=== PATIENT | male | born 1965 | race Caucasian/White ===

== ENCOUNTER 2021-12-01 16:16 | Inpatient (IN) | payer OTHER, MEDICARE ==
[~2021-12-01] VITALS: Ht 182.9 cm; Wt 150.2 kg
[~2021-12-01 16:16] MED LIST: CEFP200 PO; FERRIC X-150150 M1 PO; NYAMYC15 G1 TOP
[2021-12-01 16:44] LABS: BASOPHILS ABSOLUTE AUTO 0.04 K/mm3 (0.00-0.23); BASOPHILS PERCENT AUTO 0 % (0-2); EOSINOPHILS ABSOLUTE AUTO 0.03 K/mm3 (0.00-0.68); EOSINOPHILS PERCENT AUTO 0 % (0-6); Hematocrit 26.9 % (37.0-53.0); Hemoglobin 8.7 g/dL (13.5-17.5); IMMATURE GRAN ABSOLUTE AUTO 0.18 K/mm3 (0.00-0.10); IMMATURE GRAN PERCENT AUTO 1 % (0-1); LYMPHOCYTES PERCENT AUTO 7 % (21-46); MONOCYTES ABSOLUTE AUTO 0.82 K/mm3 (0.16-1.47); MONOCYTES PERCENT AUTO 3 % (4-13); Mean Corpuscular HGB 27.4 pg (26.0-34.0); Mean Corpuscular HGB Conc 32.3 g/dL (31.5-36.5); Mean Corpuscular Volume 85 fL (80-100); Mean Platelet Volume 8.7 fL (9.1-12.4); NEUTROPHILS ABSOLUTE AUTO 22.76 K/mm3 (1.96-9.15); NEUTROPHILS PERCENT AUTO 88 % (41-73); Platelet Count 812 K/mm3 (150-400); RDW Coefficient Variation 15.7 % (11.7-14.2); RDW Standard Deviation 47.9 fL (35.1-46.3); Red Blood Cell Count 3.18 M/mm3 (4.30-5.90); White Blood Cell Count 25.73 K/mm3 (4.00-11.30)
[2021-12-01 16:55] LABS: PCO2 Arterial 45.4 mmHg (35-45); PO2 Arterial 279 mmHg (80-100); pH Blood Arterial 7.41 (7.35-7.45)
[2021-12-01 17:01] LABS: Alanine Aminotransfer (ALT/SGP 23 U/L (12-78); Albumin, Blood 2.6 g/dL (3.4-5.0); Albumin/Globulin Ratio 0.5 (0.8-1.8); Alk Phos 113 U/L (50-136); Anion Gap 9 mmol/L (6-16); Aspartate Aminotrans (AST/SGOT 20 U/L (12-37); Bilirubin, Total 0.3 mg/dL (0.1-1.0); Blood Urea Nitrogen 16 mg/dL (8-24); Bun/Creatinine Ratio 14.2 (12.0-20.0); CO2, Blood 28 mmol/L (21-32); Calcium, Blood 9.2 mg/dL (8.5-10.1); Chloride, Blood 92 mmol/L (98-108); Creatinine, Blood 1.13 mg/dL (0.60-1.20); Ethanol (Alcohol), Blood, Med <3 mg/dL; Globulin, Blood 5.2 g/dL (2.2-4.0); Glomerular Filtration Rate 77 (60-); Glucose, Blood 97 mg/dL (70-99); Potassium, Blood 4.1 mmol/L (3.5-5.5); Sodium, Blood 129 mmol/L (136-145); Total Protein, Blood 7.8 g/dL (6.4-8.2)
[2021-12-01] MEDS ORDERED: METF500 PO (17:17)
[2021-12-01] MEDS ORDERED: LOSARTAN POTAS100 M1 PO (17:18)
[2021-12-01] MEDS ORDERED: GABA300 PO (17:19)
[2021-12-01 17:33] LABS: U Amphetamine Screen Not Detected; U Barbituate Screen Not Detected; U Benzodiazapine Screen DETECTED; U Buprenorphine Screen Not Detected; U Cannabinoids Screen Not Detected; U Cocaine Screen Not Detected; U Methadone Screen Not Detected; U Methamphetamine Screen Not Detected; U Opiates Screen Not Detected; U Oxycodone Screen Not Detected; U Phencyclidine Screen Not Detected; U Propoxyphene Screen Not Detected
[2021-12-01 18:42] LABS: Influenza A, PCR NEGATIVE (NEGATIVE); Influenza B, PCR NEGATIVE (NEGATIVE); Resp Syncytial Virus, PCR NEGATIVE (NEGATIVE); SARS-Cov-2 (COVID-19) PCR, MMC NEGATIVE (NEGATIVE)
[2021-12-01 19:18] LABS: Appearance, Urine Cloudy (Clear); Bilirubin, Urine Neg (Neg); Blood, Urine 2+ (Neg); Color, Urine Yellow (P-Yellow); Glucose Qualitative, Urine Neg (Neg); Ketones, Urine Neg (Neg); Leukocyte Esterase, Urine Neg (Neg); Nitrite, Urine Neg (Neg); Protein, Urine 2+ (Neg); Source, Urine Straight Cath; Urobilinogen, Urine NORM (Normal)
[2021-12-01 19:30] LABS: Bacteria Many /hpf; Squamous Epithelial Cells Few /hpf (Few); Transitional Epithelial Cells Rare /hpf (0-Rare)
[2021-12-01 19:32] LABS: Hyaline Casts 0-2 /lpf (0-2)
[2021-12-01 19:41] LABS: Spermatozoa Rare /hpf; Uric Acid Crystals Many /hpf
--- NOTE | 2021-12-01 23:32 | NUR ---
PT ADMITTED TO ROOM ICU 12 FROM ED. ARRIVING TO ROOM AT 2235. SLIDE TRANSFERRED TO BED. PT INTUBATED. VERSED DRIP AT 4MG PER HOUR. PT AWAKENS DURING TRANSFER AND REACHES FOR TUBE. SOFT RESTRAINTS PLACED UPON ADMIT. WILL REVIEW CHART AND PLAN OF CARE FOR THIS PT.
--- NOTE | 2021-12-02 03:00 | NUR ---
PT TURNED Q 2 HOURS IN BED. PT QUICKLY AWAKENS AND REACHES FOR HIS ETT. REDIRECTED PT. HAVE BEEN ABLE TO SUCTION CLEAR SECRETIONS WITH FLECKS OF BROWN CONSISTANT WITH CHEWING TOBACCO THAT PT HAD IN HIS MOUTH. CONTINUES ON VERSED DRIP AT 4 MG PER HOUR. WILL CONTINUE TO MONITOR.
[2021-12-02 04:12] LABS: Hematocrit 23.8 % (37.0-53.0); Hemoglobin 7.6 g/dL (13.5-17.5); Mean Corpuscular HGB 27.2 pg (26.0-34.0); Mean Corpuscular HGB Conc 31.9 g/dL (31.5-36.5); Mean Corpuscular Volume 85 fL (80-100); Mean Platelet Volume 8.5 fL (9.1-12.4); Platelet Count 619 K/mm3 (150-400); RDW Coefficient Variation 15.7 % (11.7-14.2); RDW Standard Deviation 48.9 fL (35.1-46.3); Red Blood Cell Count 2.79 M/mm3 (4.30-5.90); White Blood Cell Count 15.07 K/mm3 (4.00-11.30)
[2021-12-02 04:36] LABS: Base Excess Venous 5.1 mmol/L; Bicarbonate Venous 28.6 mmol/L (24.0-30.0); PCO2 Venous 43.1 mmHg (38-42); pH Blood Venous 7.44 (7.34-7.37)
[2021-12-02 04:42] LABS: Iron Serum 22 ug/dL (65-175); Magnesium, Blood 1.8 mg/dL (1.6-2.4); Percent Saturation 11.1 % (20.0-50.0); Total Iron Binding Capacity 198 ug/dL (250-450)
[2021-12-02 04:48] LABS: Albumin, Blood 2.4 g/dL (3.4-5.0); Anion Gap 7 mmol/L (6-16); Blood Urea Nitrogen 15 mg/dL (8-24); Bun/Creatinine Ratio 16.9 (12.0-20.0); CO2, Blood 30 mmol/L (21-32); Calcium, Blood 8.9 mg/dL (8.5-10.1); Chloride, Blood 92 mmol/L (98-108); Creatinine, Blood 0.89 mg/dL (0.60-1.20); Glomerular Filtration Rate 102 (60-); Glucose, Blood 188 mg/dL (70-99); Phosphorus, Blood 2.7 mg/dL (2.5-4.9); Potassium, Blood 3.7 mmol/L (3.5-5.5); Sodium, Blood 129 mmol/L (136-145)
--- NOTE | 2021-12-02 07:04 | NUR ---
SEDATION VACATION DONE THIS MORNING. PT WOULD THRASH ABOUT AND BECOMES VERY ANXIOUS. DOES NOT FOLLOW ANY COMMANDS. DOES TRIED TO STRIKE OUT AT THIS RN. IS NOT REDIRECTABLE. IS CURRENTLY BACK TO VERSED DRIP AT 4 MG PER HOUR. PT TOLERATING VENT AT THIS TIME. BEDSIDE REPORT GIVEN.
--- NOTE | 2021-12-02 12:03 | NUR ---
ASSUMED CARE ASSUMED CARE OF PT AT 0700. PT SEDATED ON 4MG/HR OF VERSED. PT MOVING EXTREMITIES, UNABLE TO OPEN EYES SPONTANEOUSLY, NOT FOLLOWING ANY COMMANDS. D/C'd VERSED, STARTED ON PROPOFOL AT 5MCG/KG/MIN, PROPOFOL PLACED ON STAND-BY TO ASSESS NEURO STATUS, PER . PT ON SPONTANEOUS VENTILATION MODE, WITH PS 8, PEEP 5, FiO2 40% PT HAVING MODERATE THICK CLEAR SECRETIONS VIA ETT. PT IN SR WITH HR IN THE 80'S, BP STABLE. PT IN BILATERAL WRIST RESTRAINTS. MEJÍA PATENT DRAINING TO GRAVITY, CLOUDY/SEDIMENT NOTED. AT BEDSIDE
--- NOTE | 2021-12-02 13:55 | NUR ---
Received call from Primary RN Laurel reporting family may benefit from code status discussion. 56 year old male admitted to the hospital for Respiratory Failure. Pt's medical history and comorbidities include: LBKA, DM2, HTN, and hyperlipidemia. Pt resting in bed with eyes closed and is intubated. Pt's spouse and step daughter at bedside. Engaged in therapeutic discussion regarding code status. Offered active listening as family reports Pt has been non compliant with medical recommendations for quite some time. Family reports Pt's wishes are DNR. They state Pt has been making comments [place] and stating "don't come looking for me". Continued listening as family describes Pt's behaviors and attitudes towards life. It appears that Pt may be experiencing depression. Continued discussion regarding code status wishes. Family agrees Pt wishes are for DNR and would like code status to reflect his wishes. Family would like to continue current treatment plan including intubation as recommended until they discuss further. Spoke with Dr Henriquez and discussed case. Placed DNR order in [facility] per V/O from Dr Henriquez. Palliative Care will remain available for therapeutic and supportive visits.
--- NOTE | 2021-12-02 16:20 | NUR ---
assumed care Assumed care at 1600 after recieving report from ALAINA San. and daughter at bedside. Powerglide being placed in left arm. Pt remains stable on current ventilator settings. No sedation currently, pt is not following commands. RN to continue to monitor
--- NOTE | 2021-12-02 16:31 | NUR ---
PT TRANSFERED TO 305, REPORT GIVEN TO ANABEL FOLEY AT 1620.
--- NOTE | 2021-12-02 16:33 | NUR ---
RELINQUISHED CARE AT 1600, BEDSIDE REPORT GIVEN TO ALEJANDRO FOLEY
[2021-12-02 16:51] LABS: Source, Urine Foley catheter
[2021-12-02 17:34] LABS: Appearance, Urine Hazy (Clear); Bilirubin, Urine Neg (Neg); Blood, Urine 5+ (Neg); Color, Urine Yellow (P-Yellow); Glucose Qualitative, Urine 1+ (Neg); Ketones, Urine Neg (Neg); Leukocyte Esterase, Urine 2+ (Neg); Nitrite, Urine Neg (Neg); Protein, Urine 2+ (Neg); Urobilinogen, Urine NORM (Normal)
--- NOTE | 2021-12-02 18:02 | NUR ---
MED WASTE VERSED DRIP D/C'D- WASTED 75ML WITH ALAINA KNENY.
--- NOTE | 2021-12-02 18:17 | NUR ---
End of shift Dr. Horne notified of elevated BP. PRN med orders recieved and administered. Pt's BP 178/83 after 2 doses of Labetalol (total 40mg IV). Tube feed started at 10ml with orders to increase by 10ml every 8 hours as tolerated with a 40ml flush every 4 hours. remains at bedside. All questions answered. Pt is restless and pulling on restraints at times. Opens eyes to voice but does not follow commands. SBP goal < 160, additional PRN's to be administered as ordered. RN to continue to monitor.
[2021-12-02 18:29] LABS: Bacteria Mod /hpf; Red Blood Cells, Urine 25-50 /hpf (0-2); Squamous Epithelial Cells Rare /hpf (Few)
[2021-12-02 18:30] LABS: Hyaline Casts 0-2 /lpf (0-2); WBC Cast 0-2 /lpf (0)
--- NOTE | 2021-12-02 21:52 | NUR ---
ASSUMPTION OF CARE: ASSUMED CARE OF PT AT 1900. PT INTUBATED WITH VENT SETTINGS PS 8, PEEP OF 5, AND FIO2 40%. PT RESPONDS TO VERBAL AND PAIN STIMULI, BUT IS NOT FOLLOWING COMMANDS AT THIS TIME; PERRLA BILATERALLY. LUNG SOUNDS ARE CLEAR T/O DIM IN THE BASES; BILAT SYMMETRICAL CHEST RISE. O2 LEVELS MAINTAINING 98< WITH RR 12-14. PT TACHYPNIC AND RESTLESS, MEDICATED WITH FENTANYL 2 HR PRN TO IMRPOVE VENTILATOR COMPLIANCE. S1/S2 ASCULTATED BUT MUFFLED R/T ANATOMY; RATE IN THE 80'S. SBP IN THE 210'S AT 1900, PT MEDICATED WITH LOBETOLOL AND LOSARTAN. DR ADRIAN CALLED AT 2019 AND UPDATED ABOUT SBP IN THE 200'S 45 MINUTES POST MED ADMINISTRATIONS; AT THIS TIME TELEPHONE ORDERS FOR CLONDINE ONE DOSE RECIEVED. PT MEDICATED. PT GIVEN ANOTHER DOSE OF LOBETOLOL AT 2148. SBP HAS NOW COME DOWN TO THE 180'S. PT HAS HYPOACTIVE BS IN ALL FOUR QUADRANTS; OGT IN PLACE AND INFUSING TUBE FEEDING AT 10 MLS/HR WITH A GOAL RATE OF 55 MLS/HR. ABD IS ROUNDED, OBESE, AND SOFT; PT HAS NO PAIN RESPONSE WHEN ABD IS PALPATED. TEMP MEJÍA IN PLACE AND DRAINING TO GRAVITY; URINE CLOUDY, ALEJANDRO AND SEDIMENTS PRESENT. PT PPP X 4, CAP REFILL < 3 SECONDS, AND EXTREMITIES WARM. PT HAS TWO POWERGLIDES IN THE UPPER R/L ARM THAT ARE PATENT. PT HAS BKA ON THE LEFT LEG, AND A DIABETIC ULCER ON THE RIGHT FOOT PRIOR TO ADMISSION. WILL CONTINUE TO MONITOR THROUGHOUT THE SHIFT.
[2021-12-03 04:12] LABS: BASOPHILS ABSOLUTE AUTO 0.03 K/mm3 (0.00-0.23); BASOPHILS PERCENT AUTO 0 % (0-2); EOSINOPHILS ABSOLUTE AUTO 0.07 K/mm3 (0.00-0.68); EOSINOPHILS PERCENT AUTO 1 % (0-6); Hematocrit 23.5 % (37.0-53.0); Hemoglobin 7.2 g/dL (13.5-17.5); IMMATURE GRAN PERCENT AUTO 1 % (0-1); LYMPHOCYTES ABSOLUTE AUTO 1.24 K/mm3 (0.84-5.20); LYMPHOCYTES PERCENT AUTO 10 % (21-46); MONOCYTES ABSOLUTE AUTO 0.61 K/mm3 (0.16-1.47); MONOCYTES PERCENT AUTO 5 % (4-13); Mean Corpuscular HGB 26.4 pg (26.0-34.0); Mean Corpuscular HGB Conc 30.6 g/dL (31.5-36.5); Mean Corpuscular Volume 86 fL (80-100); Mean Platelet Volume 8.8 fL (9.1-12.4); NEUTROPHILS ABSOLUTE AUTO 10.14 K/mm3 (1.96-9.15); NEUTROPHILS PERCENT AUTO 83 % (41-73); Platelet Count 621 K/mm3 (150-400); RDW Coefficient Variation 15.5 % (11.7-14.2); RDW Standard Deviation 48.6 fL (35.1-46.3); Red Blood Cell Count 2.73 M/mm3 (4.30-5.90); White Blood Cell Count 12.19 K/mm3 (4.00-11.30)
[2021-12-03 04:35] LABS: Calcium, Blood 9.1 mg/dL (8.5-10.1); Creatinine, Blood 0.64 mg/dL (0.60-1.20); Magnesium, Blood 1.8 mg/dL (1.6-2.4); Phosphorus, Blood 2.5 mg/dL (2.5-4.9); Potassium, Blood 3.8 mmol/L (3.5-5.5)
--- NOTE | 2021-12-03 06:45 | NUR ---
SHIFT SUMMARY: NO ACUTE CHANGES THIS SHIFT. PT REMAINS INTUBATED WITH VENT SETTINGS SPONTANEOUS, PS 8, PEEP 5, FIO2 55%, AND TIDAL VOLUMES 600-800; WHEN PT AGGITATED TIDAL VOLUMES WILL JUMP UP TO [id number]. PT HAS BEEN RESPONSIVE TO VERBAL/PAIN STIMULI BUT IS NOT FOLLOWING COMMANDS THIS SHIFT. PT HAS CLEAR LUNG SOUNDS THROUHGOUT AND DIM BASES. O2 LEVELS MAINTAINING 98< AND RR 16-18. PT HAS BEEN HYPERTENSIVE THROUGHOUT THE SHIFT WITH SBP RANGING FROM 160-190'S; PT MEDICATED AROUND THE CLOCK WITH LOBETOLOL AND HYDRALAZINE. PT RESPONDED WELL TO THESE MEDICATIONS, BUT EFFECTS WORE OFF QUICKLY. PT HAS BEEN RECIEVING FENTANYL Q2HRS TO HELP WITH RESTLESSNESS/VENTILATOR COMPLIANCE. PT HAS RESPONDED WELL TO THIS, BUT EFFECTS WORE OFF QUICKLY. TEMP MEJÍA IN PLACE AND DRAINING TO GRAVITY; PT RECIEVED ONE TIME DOSE OF LASIX R/T HTN AND HAD GOOD OUTPUT THIS SHIFT. COMPLETE BED BATH AND LINEN CHANGE COMPLETED THIS SHIFT. WILL CONTINUE TO MONITOR UNTIL ONCOMING NURSE ARRIVES.
--- NOTE | 2021-12-03 07:19 | NUR ---
ASSUMED CARE OF PT THIS AM PT. REMAINS OFF OF SEDATION T/O THE NIGHT PER REPORT. PT. CURRENTLY ON SPONT MODE ON VENT PS 8/5 40%. PT RR IN 20S. RESTLESS IN BED, DOES NOT OPEN EYES OR FOLLOW COMMANDS, BUT DOES WITHDRAW FROM PAINFUL STIMULI. NYSTAGMUS NOTED WHEN ASSESSING EYES, PUPILS EQUAL AND REACTIVE. COUGH AND GAG PRESENT, PALE AND SWEATING. PT. HYPERTENSIVE, LS COARSE THIN LA SECRETIONS FROM ETT. PT. HAS TF INFUSING AT 30ML/HR OF PIVOT 1.5. PT. PLACED BACK ON PROPOFOL GTT AT THIS TIME, VENT SWITCHED TO ACVC 16, TV 500,40%, PEEP 5. BILAT WRIST RESTRAINTS REMAIN IN PLACE TO PREVENT SELF EXTUBATION. AFEBRILE. MEJÍA DRAININ YELLOW URINE TO GRAVITY.
--- NOTE | 2021-12-03 11:00 | NUR ---
REPORT TO CASSY FOLEY
--- NOTE | 2021-12-03 13:04 | NUR ---
Received call from supervisor correspondence section Stacey reporting family is requesting Palliative Care visit. Spoke with Shiloh and discussed case. Reviewed plan of care. Pt resting in bed and intubated. No S/S of distress at thist alhaji. Pt's spouse, daughter and another visitor at bedside. Offered active listening as spouse Echo asks "what is the step to have him trasnfered". Requested clearification on statement. Echo inquires the steps to withdraw care and what to expect after. Instructed on steps including considering hospice. Reviewed current plan of care and consideration of allowing another day or two for Pt to start clearing with his altered mentation. Continued active listening and answered questions. Spouse reports being in agreement with continuing current plan of care. Palliative Care will remain available.
--- NOTE | 2021-12-03 17:25 | NUR ---
SHIFT SUMMARY PT REMAINS INTUBATED AND SEDATED. VENT SETTINGS AC/VC %. LUNGS CLEAR, DIM IN BASES. SMALL RED SECRETIONS FROM ETT. PROPOFOL FOR SEDATION. WHEN SEDATION LIGHTENED, PT OPENS EYES TO VERBAL STIMULI. DOES NOT FOLLOW COMMANDS. TREMORS INCREASE. NO SBT THIS SHIFT D/T INCREASED O2 REQUIREMENTS. BP STABLE, NSR, RATE 90'S. DIALYSIS THIS SHIFT, 4L OFF, TOLERATED WELL. CATH RESECURED BY DR CHADWICK AND REDRESSED D/T OOZING, IMPROVED. 200 BROWN/GREEN EMESIS OUT OGT, TRICKLE FEEDS STARTED. MEJÍA PATENT, 25 ML CLEAR YELLOW URINE OUT. RECTAL TUBE, 50 ML LIQUID BROWN URINE OUT. WILL CONTINUE TO MONITOR UNTIL REPORT TO ONCOMING NURSE.
--- NOTE | 2021-12-03 18:14 | NUR ---
SHIFT SUMMARY PT REMAINS INTUBATED AND SEDATED. VENT SETTINGS AC/VC 16/500/40/5. LUNGS COARSE, SMALL AMOUNT OF THIN LA SECRETIONS FROM ETT. PROPOFOL FOR SEDATION, WHEN SEDATION LIGHTENED, PT COUGHING, PEAK PRESSURING. DOES NOT FOLLOW COMMANDS. SR, RATE 80'S. BP STABLE. TUBE FEEDS DECREASED TO 10 ML/HR. MEJÍA PATENT, DRAINED 350 ML ALEJANDRO URINE TO GRAVITY. WILL CONTINUE TO MONITOR UNTIL REPORT TO ONCOMING NURSE.
--- NOTE | 2021-12-03 22:19 | NUR ---
ASSUMPTION OF CARE: ASSUMED CARE OF PT AT 1900. PT IS INTUBATED AND SEDATED WITH PROPOFOL RUNNING AT 50 MCG/KG/MIN AND VENT SETTINGS AC/VC 16/500/5/40%. PT IS RESPONSIVE TO PAIN STIMULI BUT NOT RESPONSIVE TO VERBAL STIMULI; PT NOT FOLLOWING COMMANDS AT THIS TIME. PERRLA BILATERALLY. PT HAS CLEAR LUNG SOUNDS THROUGHOUT DIM BASES; O2 LEVELS MAINTAINING 96<. S1/S2 ASCULTATED WITH HR IN THE 80'S AND SBP IN THE 150'SL; PT MEDICATED WITH LOSARTAN ORDERED. HYPOACTIVE BS IN ALL FOUR QUADRANTS; ABD IS ROUNDED, FIRM, AND NO PAIN WITH PALPATION. OGT PATENT AND INFUSING VHP AT 10 MLS/HR WITH 150 ML FLUSH Q4HRS; 5 ML RISIDUAL. TEMP MEJÍA IN PLACE AND DRAINING TO GRAVITY; URINE ALEJANDRO AND CLEAR. ALL EXTREMITIES ARE WARM AND PPP X 4, CAP REFIL REMAINS < 3 SECONDS. WILL CONTINUE TO MONITOR THROUGHOUT THE SHIFT.
[2021-12-04 04:20] LABS: BASOPHILS ABSOLUTE AUTO 0.03 K/mm3 (0.00-0.23); BASOPHILS PERCENT AUTO 0 % (0-2); EOSINOPHILS ABSOLUTE AUTO 0.13 K/mm3 (0.00-0.68); EOSINOPHILS PERCENT AUTO 1 % (0-6); Hematocrit 22.4 % (37.0-53.0); Hemoglobin 7.1 g/dL (13.5-17.5); IMMATURE GRAN ABSOLUTE AUTO 0.08 K/mm3 (0.00-0.10); IMMATURE GRAN PERCENT AUTO 1 % (0-1); LYMPHOCYTES ABSOLUTE AUTO 1.47 K/mm3 (0.84-5.20); LYMPHOCYTES PERCENT AUTO 15 % (21-46); MONOCYTES ABSOLUTE AUTO 0.58 K/mm3 (0.16-1.47); MONOCYTES PERCENT AUTO 6 % (4-13); Mean Corpuscular HGB 27.6 pg (26.0-34.0); Mean Corpuscular HGB Conc 31.7 g/dL (31.5-36.5); Mean Corpuscular Volume 87 fL (80-100); Mean Platelet Volume 8.6 fL (9.1-12.4); NEUTROPHILS ABSOLUTE AUTO 7.44 K/mm3 (1.96-9.15); NEUTROPHILS PERCENT AUTO 77 % (41-73); Platelet Count 579 K/mm3 (150-400); RDW Coefficient Variation 15.7 % (11.7-14.2); RDW Standard Deviation 49.8 fL (35.1-46.3); Red Blood Cell Count 2.57 M/mm3 (4.30-5.90); White Blood Cell Count 9.73 K/mm3 (4.00-11.30)
[2021-12-04 04:22] LABS: PCO2 Arterial 45.5 mmHg (35-45); PO2 Arterial 112 mmHg (80-100); pH Blood Arterial 7.46 (7.35-7.45)
[2021-12-04 04:39] LABS: Bun/Creatinine Ratio 22.5 (12.0-20.0); Creatinine, Blood 0.67 mg/dL (0.60-1.20); Magnesium, Blood 2.2 mg/dL (1.6-2.4); Phosphorus, Blood 3.3 mg/dL (2.5-4.9); Potassium, Blood 3.8 mmol/L (3.5-5.5)
--- NOTE | 2021-12-04 06:27 | NUR ---
SHIFT SUMMARY: NO ACUTE CHANGES THIS SHIFT. PT REMAINS INTUBATED AND SEDATED WITH PROPOFOL RUNNING AT MCG/KG/MIN AND VENT SETTINGS /500/5/40%. PT REMAINS RESPONSIVE TO PAIN STIMULI AND IS NOT FOLLOWING COMMANDS. LUNG SOUNDS ARE COARSE T/O AND DIM BASES; O2 LEVELS 98<. PT HAS CUFF LEAK AND FLUID COLLECTION IN THE HOME MANAGER BALLOON, TIDAL VOLUMES ARE STABLE; DR CHADWICK AWARE. PT RECIEVED A BED BATH AND COMPLETE LINEN CHAGNE THIS SHIT. PT BECAME HYPERTENSIVE THE LAST HOUR OF THIS SHIFT WITH SBP IN THE 190'S; PT MEDICATED WITH HYDRALAZINE. HR IN THE 80'S. WILL CONTINUE TO MONITOR UNTIL ONCOMING RN ARRIVES.
--- NOTE | 2021-12-04 16:23 | NUR ---
Joint visit this afternoon with Dr Hay. Pt resting in bed, sedated, and intubated. Pt's spouse Echo at bedside. Dr Hay examines Pt, assesses Pt's medical history with spouse and reviews plan of care. Options discussed with plan to revisit Pt's clinical status tomorrow morning after attempting to wean Pt off all sedation medication. Spouse expresses appreciation and reports no concerns at this time. Palliative Care will remain available.
--- NOTE | 2021-12-04 18:41 | NUR ---
SUMMARY PT INTUBATED. STOPPED SEDATION THIS EVENING. PT WILL GRIMACE TO PAINFUL STIMULUS. MOVES EXTREMETIES SPONTANEOUSLY. L BKA. WOUNDS TO R FOOT SEE WOUND PHOTOS. PT HAD TWO BM'S TODAY THAT ARE CLEAR GELATINOUS. NO ACUTE CHANGES THIS SHIFT. AT BEDSIDE.
--- NOTE | 2021-12-04 22:00 | NUR ---
WHEN REPISITIONING THE PATIENT TRIED PULLING AWAY WHEN TURNED ON SIDE. EYES WERE OPEN BUT WITH GAZE, NO REPONSE TO VERBAL STIMULI. PARTIAL BED BATH GIVEN. BLOOD PRESSURE HYPERTENSIVE, HYDRALAZINE GIVEN.
[2021-12-05 04:41] LABS: Base Excess Venous 8.2 mmol/L; Bicarbonate Venous 31.2 mmol/L (24.0-30.0); PCO2 Venous 48.6 mmHg (38-42); pH Blood Venous 7.43 (7.34-7.37)
[2021-12-05 05:17] LABS: Bun/Creatinine Ratio 24.8 (12.0-20.0); Calcium, Blood 9.4 mg/dL (8.5-10.1); Creatinine, Blood 0.57 mg/dL (0.60-1.20); Magnesium, Blood 1.9 mg/dL (1.6-2.4); Potassium, Blood 3.8 mmol/L (3.5-5.5)
--- NOTE | 2021-12-05 07:16 | NUR ---
SHIFT SUMMARY: PATIENT HAS NOT HAD ANY PURPOSEFUL MOVEMENTS. NON-RESPONSIVE TO PAIN, OR VERBAL COMMAND. SPONTANOUS EYE OPENING WITH GAZE THAT IS UP TO THE RIGHT, SLUGGISH PUPILS., DOES HAVE SPONTANOUS WITHDRAWL WHEN MOVED, BUT AGAIN NOT PURPOSEFUL. GAG PRESENT WHEN SUCTIONING, COUGH. ETT TUBE CONTINUES TO HAVE CUFF LEAK NEEDING CONSTANT AIR ADDED. DISCUSSED THIS WITH RT.SUCTION IS THICK WHITE, VENT HAS BEEN AC/VC SETTINGS OF 14/500/4/40% SATS MAINTAINED IN THE 90-100% RANGE. HE DID HAVE A COUGHING FIT THIS AM HE WAS BUCKING THE VENT. FENT 25MCQ GIVEN WHICH HELPED TO RESOLVE. NO PROPOFOL THE ENTIRE SHIFT AND PRECEDEX WAS NEVER NEEDED. LS DIM TO COARSE. NEEDING SUCTIONING MORE FREQUENTLY. ABDOMIN DISTENDED, NO BM. TF INFUSING WITH NO RESIDUALS. BLOOD SUGARS HAVE BEEN HIGH IN THE 200'S. WOUNDS TO RIGHT FOOT CLEANSED AND DRESSING APPLED, FOAM BOOTY. URINE CONTINUES TO BE TEA COLOR WITH TENT OF BLOOD AND LOTS OF SEDIMENT. HE HAS NEEDED PRN BLOOD PRESSURE MEDS. REPORT GIVEN TO DAYSHIFT.
--- NOTE | 2021-12-05 07:29 | NUR ---
ASSUMPTION OF CARE PT VENTED ON [facility] /40%/5, NO SEDATION AT THIS TIME
--- NOTE | 2021-12-05 10:50 | NUR ---
Pal Care note: Pt moving legs in bed and appears restless upon entering room. I had reviewed EMR. Pt remains unable to follow commands. See RN/MD PNs. I was updated on family decision to w/d ventilator/aggressive tx per Dr Hay and pt's RN. Bedside visit to susan and . Susan appears guarded and not receptive to conversation. was receptive to visit and verbalized appreciation for care. They had no additional questions and had already spoken with paper supervisor yesterday and today. Comfort care orders placed per request. Family indicated they were ready to proceed. I let RT and RN know family ready.
--- NOTE | 2021-12-05 15:58 | NUR ---
F/U COMFORT CARE VISIT MADE AFTER PT TRANSFERRED TO RM 333. at bedside holding pt's hand. He remains unresponsive. Resp even and unlabored at this time. He appears much more comfortable and no restlessness noted now. Discussed with and eryn in room the nonverbal indicators to watch for that would tell us he may be hurting, anxious, dyspnic, distressed. verbalized understanding to report any noted indicators to nursing staff for tx prn per eMAR/comfort care order set. Planned with them to check in tomorrow for s/s assessment and support.
--- NOTE | 2021-12-05 16:16 | NUR ---
TRANSFER NOTE PTN TRANSFERED FROM ICU AT APPROX 1345. PTN NON-RESPONSIVE AND ON COMFORT CARE. FAMILY BY HIS BEDSIDE. PTN MEDICATED PER EMAR NEEDED. BOTTOM R FOOT WITH SMALL INJURY, OPEN TO AIR. L BKA. CONTINUE COMFORT CARE MEASURES.
--- NOTE | 2021-12-05 19:44 | NUR ---
SHIFT SUMMARY PTN NON-RESPONSIVE, COMFORT CARE. PTN RESTED COMFORTABLY THROUGH SHIFT, NO SIGNS OF ANXIETY OR PAIN. MEDICATION GIVEN PER EMAR. AND DAUGHTER AT BEDSIDE. CONTINUE COMFORT CARE.
--- NOTE | 2021-12-06 05:28 | NUR ---
SHIFT SUMMARY 56 YR M ON COMFORT CARE. DNR. PT HAS BEEN RESTING COMFORTABLY WITH HIS AND DAUGHTER AT BEDSIDE. HE HAS SHOWN NO SIGNS OF PAIN OR DISCOMFORT AND HE CONTINUES TO BE REPOSITIONED Q2H. HE HAS BEEN NONRESPONSIVE FOR THE MOST PART AND THIS NURSE ONLY SAW HIM OPEN HIS EYES BRIEFLY TWICE.
--- NOTE | 2021-12-06 09:01 | NUR ---
Pt moving around in bed, turning head back and forth. Pt appears restless and anxious. Pt has foaming secretions at mouth. Lying on back with HOB sl elevated. Nonverbal indicators of discomfort noted as well as increased secretions since pm visit yesterday. Report provided to RN on my visit. Would recommend positioning pt on side with hob elevated at 45 degrees, administration of atropine/scopolomine, ativan and roxanol prn. Will reassess later today. No family at bedside this am.
--- NOTE | 2021-12-06 12:22 | NUR ---
Reassessment. Pt appears much more comfortable and less restless at this time.
--- NOTE | 2021-12-06 18:04 | NUR ---
PT BEGINNING TO MOVE ARMS, AND LEGS IN A TENSE JERKING MOTION. FOAM AT THE MOUTH. RN WASHED PT'S FACE AND HELD PT'S HAND. TURNED ON CLASSICAL MUSIC. DIMMED LIGHTS. ADMINISTERED PRN MEDICATION, SEE EMAR.
--- NOTE | 2021-12-06 18:06 | NUR ---
COMFORT CARE - PT MOANING AND MOVING ARMS IN A TENSE, JERKING MOTION. SEE EMAR.
--- NOTE | 2021-12-06 18:10 | NUR ---
PT CONTINUES TO MOVE IN JERKY MOTIONS WITH BUE AND THROW HIS RIGHT LEG OVER THE BED RAIL. ADMINISTERED PRN MEDICATIONS. SET UP FAN IN THE ROOM. FAMILY AT BEDSIDE, ATTEMPTING TO CONSOLE PT, WHO IS NOT RESPONDING TO TOUCH OR TALK.
--- NOTE | 2021-12-06 18:12 | NUR ---
SOFT WRIST RESTRAINTS IN PLACE TO BUE WHILE WAITING FOR MEDICATION TO TAKE EFFECT. FAMILY AT BEDSIDE.
--- NOTE | 2021-12-07 05:51 | NUR ---
SHIFT SUMMARY 56 YR M WITH RESPIRATORY FAILURE ON COMFORT CARE. DNR. PT APPEARED TO BE RESTLESS FOR MOST OF THIS SHIFT. HE MOVES AROUND ALOT AND MOANS ON OCCASION. HE IS NOT AWAKE AND DOES NOT APPEAR TO BE AWARE OF HIS SURROUNDINGS. ATIVAN AND ROXINOL WERE GIVEN PER EMAR AT HIS FAMILY'S REQUEST. RESTRAINTS WERE REMOVED THIS A.M. AT 0530.
--- NOTE | 2021-12-07 09:00 | NUR ---
Comfort care visit. Pt is lying supine,diagonally in bed, hob elev slightly. He appears to be resting quietly. All covers and pillows askew. Pt covered and pillows placed for his protection and comfort. Resp even and sl labored. Skin warm, diaphoretic. Would recommend tylenol supp per eMAR. Pt has been more restless and active with bed mobility during night requiring restraints for his safety. No family visiting currently. Would recommned more regularly scheduled ativan for restlessness noted past two days. Update on my visit to RN and strategized with her on improving s/s management.
--- NOTE | 2021-12-07 16:12 | NUR ---
SHIFT SUMMARY PT VERY RESTLESS AND MOANING AT START OF SHIFT. PT MEDICATED JUST PRIOR TO SHIFT REPORT, BUT STILL MOANING AND AGITATED. NONVERBAL C/C PT ADMITTED FOR RESP FAILURE. ATIVAN ORDERED FROM PHARMACY AND GIVEN PER EMAR, WHICH SEEMED TO HELP SOME. PALLIATIVE CARE RN IN TO CK ON PT AND ORDERED ADDITIONAL MEDICATIONS FOR COMFORT. PT MEDICATED PER EMAR THRU OUT THE DAY AND PT EVENTUALLY BECAME QUIET AND ABLE TO REST MORE COMFORTABLE. PT'S AND DAUGHTER IN THIS AFTERNOON AND REMAIN AT BS. DR MINER IN THIS AM TO SEE PT AND THEN REQUESTED WOMEN DESIGNER TO BE NOTIFIED TO START HOSPICE D/C PLANNING. PALLIATIVE CARE RN DISCUSSED BRIEFLY POSSIBLE HOSPICE D/C TO HOME WITH AND DAUGHTER. WOMEN DESIGNER TO TALK WITH TOMORROW AND DISCUSS NEEDED DETAILS. BED BATH AND LINEN CHANGED DONE. PT VERY OBESE AND OBTUNDED, MAKING TURNING AND BATHING DIFFICULT, BUT PT DID REST BETTER WHEN FINISHED. WILL MONITOR.
--- NOTE | 2021-12-07 16:19 | NUR ---
Second comfort care visit to f/u on s/s management and check in with family. at bedside. Susan in room also. RN and I case conferenced and made joint visit. Pt appears much more comfortable today. RN states SL ativan worked well with longer period of benefit than IV ativan. Pt appeared to be sleeping and did not rouse with conversation at bedside. He has occasional unpurposeful movememt of arms but no restless noted that has been an issue the last 48 hours. Pt is unable to swallow or be awake/alert enough to attempt. He does not appear imminent but that could change with complete lack of fluid intake. Resp even and sl labored with secretions heard in upper airway. has been attentive and visiting every day in the after- noons. Discussed possibility of d/c home with hospice. initially looked alarmed but then was receptive, stating they could put hospital bed in the living room. Underage susan states, "that's not possible". When I asked why she stated because of their 3 dogs and multple cats. Both and I agreed that pt's pets in the home may be a comfort to him. Explained that CM would touch bases with tomorrow re: d/c planning. Pal Care to reassess progression with dying process in the am and report to CM results of visit. I reported to CM after visit on all of above.
--- NOTE | 2021-12-08 05:40 | NUR ---
NIGHTSHIFT SUMMARY Patient at bedside this evening, reported concerns that patient was uncomfortable. Patient uncommunicative, but observed moaning/groaning, restless. Administred Roxinal SL & Ativan, PRNs effective for pain. Managed sx with IV Ativan/Morphine throughout the night, PRNs provided relief for about 3-4 hours, and then patient appeared SOB, painful. Patient repositioned, arms supported with pillows. Midline catheters in LUE/RUE, dressings soiled, peeling. Changed dressings, and new caps to both sites. Both lines patent & flush. Will continue to monitor, and provide interventions for comfort.
--- NOTE | 2021-12-08 12:57 | NUR ---
Comfort Care Visit Pt resting in bed and is non responsive. Pt's spouse and daughter at bedside. Pt's Primary RN Caroline at bedside. Engaged in therapeutic discussion regarding hospice. Educated on hospice philosophy with family V/U and stating being familiar with hospice for other family members in the past. Discussed hospice agencies to choose from with family choosing [facility]. Pt appears comfortable with no S/S of distress at this time. Moderate secretions noted. Assisted Caroline with repositioning Pt. Spoke with RN Frank Andrade and relayed family choice for [facility]. Palliative Care will remain available.
--- NOTE | 2021-12-08 13:08 | NUR ---
FAMILY IN ROOM WITH PATIENT. AND DAUGHTER REQUESTED PALLIATIVE CARE NURSE TO DISCUSS HOSPICE SERVICES. COLLEEN PEACE NOTIFIED OF REQUEST. PT APPEARS TO BE IN NO PAIN, PAINAD O/10. PT DOES HAVE AUDIBLE SECRETIONS AT THIS TIME. FAMILY EDUCATED AND FAMILY REPORTED IT DOES NOT BOTHER THEM TO HEAR HIS SECRETIONS. SCOPALAMINE PATCH WAS CHANGED THIS AM. PT HOB ELEVATED TO ASSIST WITH DRAINAGE OF SECRETIONS. FAMILY EDUCATED ON COMFORT CARE MEASURES AND IMPORTANCE OF REPOSITIONING Q2. PT REPOSITIONED AND NO S/S OF PAIN WHILE REPOSTIONING.
--- NOTE | 2021-12-08 18:40 | NUR ---
SHIFT SUMMARY: PT NON RESPONSIVE THROUGHOUT THE DAY. COMFORT CARE MEASURES MAINTAINED. ROXANOL AND ATIVAN GIVEN FOR PAIN/AGITATION NEEDED. ATROPINE STARTED DUE TO INCREASED AUDIBLE SECRETIONS AFTER NEW SCOPOLOMINE PATCH APPLIED. MEJÍA REMAINS PATENT WITH VERY LITTLE URINE OUTPUT COFFEE COLORED. FAMILY IN AND OUT THROUGHOUT THE DAY. EDUCATED FAMILY WHILE PRESENT REPOSITIONING, MEDICATION MANAGEMENT SKIN AND ORAL CARE MEASURES THEY PLAN TO TAKE PT HOME ON HOSPICE.
--- NOTE | 2021-12-09 03:56 | NUR ---
SHIFT SUMMARY COMFORT CARE NO ACUTE CHANGES OVERNIGHT. PT REMAIN UNRESPONSIVE. PT HAS A LOT NASAL SECREATIONS, MEDICATED WITH ATROPINE. AND DTR AT BEDSIDE, STAYING OVERNIGHT. NO PAIN NOTED. PT HAS BEEN COMFORTABLE. ROXANOL 20MG GIVEN AND 1MG ATIVAN. REPOSITIONED. CALL LIGHT WITHIN REACH. WILL PROVIDE REPORT TO ONCOMING NURSE.
--- NOTE | 2021-12-09 06:00 | NUR ---
0600: KINGSLEY SCHWARTZ IS HERE TO CLINIC MD ASSOCIATE PATIENT FROM ROOM 333. ELVIRA COSME RN CHARGE NURSE NOTIFIED. FACESHEET WAS GIVEN.
== END 2021-12-09 04:30 | DRG 208 ==
LOC: ER 16:16 → ICUW 16:17 → MEDS 16:17 → ICUW 21:30 → MEDS 12-05 13:50
PROVIDERS: Emergency Medicine; Internal Medicine; Internal Medicine Critical Care Medicine; ADMIT Internal Medicine
PROC: 5A1945Z Respiratory Ventilation, 24-96 Consecutive Hours (ICD-10-PCS; principal; 2021-12-01)
DX: J96.01 Acute respiratory failure with hypoxia (principal); G92.8 Other toxic encephalopathy; E87.1 Hypo-osmolality and hyponatremia; E66.9 Obesity, unspecified; I10 Essential (primary) hypertension; E11.65 Type 2 diabetes mellitus with hyperglycemia; R45.1 Restlessness and agitation; E11.40 Type 2 diabetes mellitus with diabetic neuropathy, unspecified; M51.37 Other intervertebral disc degeneration, lumbosacral region; E78.5 Hyperlipidemia, unspecified; Z89.512 Acquired absence of left leg below knee; Z79.899 Other long term (current) drug therapy; Z79.4 Long term (current) use of insulin; Z79.84 Long term (current) use of oral hypoglycemic drugs; Z51.5 Encounter for palliative care
CPT/HCPCS: 0241U; 36600; 51702; 70450; 71045; 80048; 80053; 80069; 81001; 82140; 82803; 82947; 83540; 83550; 83735; 84100; 84443; 85025; 85027; 87040; 87070; 87086; 87205; 93005; 93010; 93306; 94002; 94003; 94760; 96365-59; 96375-59; 96376-59; 99291-25; A9270; C1751; C9113; G0480; J0360; J0696; J1650; J1815; J1940; J2060; J2250; J2270; J2704; J3010; J7030; J7050